=== PATIENT | female | born 1990 | race American Indian/Alaskan Native ===

== ENCOUNTER 2018-09-15 18:38 | Emergency (ER) | payer OTHER ==
--- NOTE | 2018-09-16 00:47 | Emergency Department Report ---
ED ENT HPI - General Chief complaint: Dental/Oral Stated complaint: MOUTH PAIN/INFECTION Time Seen by Provider: 09/16/18 00:07 Source: patient Mode of arrival: Ambulatory Limitations: No Limitations - History of Present Illness Initial comments: Pt presents with left, lower dental pain that began 4 days ago. She states she noticed some mild left sided facial swelling yesterday. She denies any fever or drainage. The patient states she last saw a dentist 8 months ago. She states that she has a wisdom tooth that needs to be removed on that side. She states she was referred to an oral surgeon but could not have the procedure due to financial reasons. - Related Data Previous Rx's Medication Instructions Recorded Last Taken Type Acetaminophen/Codeine [Tylenol 1 tab PO Q6H PRN #10 tab 09/16/18 Unknown Rx /Codeine # 3 tab] Amoxicillin/K Clav Tab [Augmentin 1 tab PO BID 7 Days #14 tab 09/16/18 Unknown Rx 875 mg] Ibuprofen 600 mg PO Q6HR PRN #20 tablet 09/16/18 Unknown Rx Allergies Allergy/AdvReac Type Severity Reaction Status Date / Time No Known Allergies Allergy Verified 09/15/18 18:40 ED Dental HPI - General Chief complaint: Dental/Oral Stated complaint: MOUTH PAIN/INFECTION Time Seen by Provider: 09/16/18 00:07 Source: patient Mode of arrival: Ambulatory Limitations: No Limitations - Related Data Previous Rx's Medication Instructions Recorded Last Taken Type Acetaminophen/Codeine [Tylenol 1 tab PO Q6H PRN #10 tab 09/16/18 Unknown Rx /Codeine # 3 tab] Amoxicillin/K Clav Tab [Augmentin 1 tab PO BID 7 Days #14 tab 09/16/18 Unknown Rx 875 mg] Ibuprofen 600 mg PO Q6HR PRN #20 tablet 09/16/18 Unknown Rx Allergies Allergy/AdvReac Type Severity Reaction Status Date / Time No Known Allergies Allergy Verified 09/15/18 18:40 ED Review of Systems ROS: Stated complaint: MOUTH PAIN/INFECTION Other details as noted in HPI Comment: All other systems reviewed and negative ED Past Medical Hx - Past Medical History Previous Medical History?: No - Surgical History Past Surgical History?: Yes - Social History Smoking Status: Current Some Day Smoker - Medications Home Medications: Home Medications Medication Instructions Recorded Confirmed Last Taken Type Acetaminophen/Codeine [Tylenol 1 tab PO Q6H PRN #10 tab 09/16/18 Unknown Rx /Codeine # 3 tab] Amoxicillin/K Clav Tab [Augmentin 1 tab PO BID 7 Days #14 tab 09/16/18 Unknown Rx 875 mg] Ibuprofen 600 mg PO Q6HR PRN #20 tablet 09/16/18 Unknown Rx ED Physical Exam - General Limitations: No Limitations General appearance: alert, in no apparent distress - Head Head exam: Present: atraumatic, normocephalic - Eye Eye exam: Present: normal appearance - ENT ENT exam: Present: mucous membranes moist - Expanded ENT Exam Expanded Teeth exam: Present: dental tenderness # (pt has dental tenderness at tooth #17, small area of induration, no fluctuance, only small amount of the wisdom tooth is visible, no erythema, uvula is midline, very mild amount of left, lower facial swelling) 1 - Dental Tenderness - Respiratory Respiratory exam: Present: normal lung sounds bilaterally. Absent: respiratory distress, wheezes, rales, rhonchi, stridor, chest wall tenderness, accessory muscle use, decreased breath sounds, prolonged expiratory - Cardiovascular Cardiovascular Exam: Present: regular rate, normal rhythm, normal heart sounds. Absent: systolic murmur, diastolic murmur, rubs, gallop - Neurological Exam Neurological exam: Present: alert, oriented X3 - Psychiatric Psychiatric exam: Present: normal affect, normal mood - Skin Skin exam: Present: warm, dry, intact ED Course Vital Signs 09/15/18 09/16/18 09/16/18 19:35 01:00 01:11 Temperature 98.1 F 98.5 F Pulse Rate 94 H 77 Respiratory 18 16 16 Rate Blood Pressure 121/81 Blood Pressure 98/72 [Left] O2 Sat by Pulse 98 Oximetry ED Medical Decision Making - Lab Data Vital Signs 09/15/18 09/16/18 09/16/18 19:35 01:00 01:11 Temperature 98.1 F 98.5 F Pulse Rate 94 H 77 Respiratory 18 16 16 Rate Blood Pressure 121/81 Blood Pressure 98/72 [Left] O2 Sat by Pulse 98 Oximetry - Medical Decision Making Pt presents with left, lower dental pain that began 4 days ago. She states she noticed some mild left sided facial swelling yesterday. She denies any fever or drainage. The patient states she last saw a dentist 8 months ago. She states that she has a wisdom tooth that needs to be removed on that side. She states she was referred to an oral surgeon but could not have the procedure due to financial reasons. on examination pt has dental tenderness over tooth #17 on small portion of the wisdom tooth is visible, there is a small area of induration present on the gum but no fluctuance or erythema, uvula is midline, breath sounds clear bilaterally, very small amount of left lower facial edema. VSS. given area of induration will cover pt with antibiotic and something for pain. Pt will need to follow up with dentist in the next 2-3 days. Will give pt list of resources for dental clinic. Return to the emergency room for any new or worsening symptoms. - Differential Diagnosis dental pain, dental abscess, dental caries Critical care attestation.: If time is entered above; I have spent that time in minutes in the direct care of this critically ill patient, excluding procedure time. ED Disposition Clinical Impression: Pain, dental Disposition: DC- TO HOME OR SELFCARE Is pt being admited?: No Does the pt Need Aspirin: No Condition: Stable Instructions: Toothache (ED) Additional Instructions: Please follow up with a dentist in the next 2 days. Given list of community resources for dental clinics. Take medication as prescribed. Return to the emergency room for any new or worsening symptoms. Prescriptions: Amoxicillin/K Clav Tab [Augmentin 875 mg] 1 tab PO BID 7 Days #14 tab Ibuprofen 600 mg PO Q6HR PRN #20 tablet PRN Reason: Pain, Mild (1-3) Acetaminophen/Codeine [Tylenol /Codeine # 3 tab] 1 tab PO Q6H PRN #10 tab PRN Reason: Pain , Severe (7-10) Referrals: JUNG URIOSTEGUI MD [Primary Care Provider] - 2-3 Days Time of Disposition: 00:51 Print Language: TELUGU
[2018-09-16] MEDS ORDERED: TYLENOL PO ONE (01:00)
[2018-09-16] MEDS ORDERED: TYLENOL ONE (01:07)
[2018-09-16 01:12] VITALS: BP 98/72
== END 2018-09-16 01:11 | disposition home or self-care (01) ==
LOC: ED 18:38
DX: K08.89 Other specified disorders of teeth and supporting structures (principal); F17.200 Nicotine dependence, unspecified, uncomplicated
CPT/HCPCS: 99282